=== PATIENT | male | born 1990 | race Caucasian/White ===

== ENCOUNTER 2021-11-21 12:07 | Emergency (ER) | payer SELFPAY ==
[2021-11-21] MEDS ORDERED: Sodium Chloride 0.9% 10 ML Syringe FLUSH PRN (13:23)
[2021-11-21] MEDS ORDERED: Ketorolac 30 MG/ML SDV IVPUSH ONE (13:23)
[2021-11-21] MEDS ORDERED: Sodium Chloride 0.9% 1,000 ML IV ONE (13:23)
[2021-11-21 14:46] LABS: CORONAVIRUS COVID-19 NAA NEGATIVE (NEGATIVE)
== END 2021-11-21 15:44 | disposition home or self-care (01) ==
LOC: JD.ED 12:07
DX: J11.1 Influenza due to unidentified influenza virus with other respiratory manifestations (principal); Z88.2 Allergy status to sulfonamides; Z20.822 Contact with and (suspected) exposure to COVID-19
CPT/HCPCS: 0241U; 36415; 71045; 80053; 83735; 85025; 86140; 96361; 96374; 99283; J1885; J3490; J7030; 99282

== ENCOUNTER 2023-02-04 08:15 | Emergency (ER) | payer BC ==
[2023-02-04] MEDS ORDERED: Metoclopramide 10 MG/2 ML SDV IVPUSH ONE (08:42)
[2023-02-04] MEDS ORDERED: Lactated Ringers 1,000 ML IV ONE (08:42)
[2023-02-04] MEDS ORDERED: Ketorolac 30 MG/ML SDV IVPUSH ONE (08:43)
[2023-02-04 09:25] LABS: CORONAVIRUS COVID-19 NAA NEGATIVE (NEGATIVE); INFLUENZA A NAA POSITIVE (NEGATIVE); RESPIRATORY SYNCYTIAL VIR NAA NEGATIVE (NEGATIVE)
== END 2023-02-04 10:50 | disposition home or self-care (01) ==
LOC: JD.ED 08:15
DX: J10.1 Influenza due to other identified influenza virus with other respiratory manifestations (principal); R03.0 Elevated blood-pressure reading, without diagnosis of hypertension; Z88.2 Allergy status to sulfonamides
CPT/HCPCS: 0241U; 96361; 96374; 96375; 99284; J1885; J2765; J7120; 99283

== ENCOUNTER 2024-02-17 18:33 | Emergency (ER) | payer BC | END 2024-02-17 21:52 | disposition home or self-care (01) | LOC: JD.ED 18:33 | DX: M67.432 Ganglion, left wrist (principal); Z88.2 Allergy status to sulfonamides; Z79.84 Long term (current) use of oral hypoglycemic drugs | CPT/HCPCS: 73110-26-LT; 73110-LT; 99282; 99283 ==